=== PATIENT | male | born 1985 | race Caucasian/White ===

== ENCOUNTER 2018-03-10 08:38 | Outpatient (REF) | payer MEDICAID, SELFPAY ==
[2018-03-10 21:47] LABS: Cholesterol 137 mg/dL (50-200); HDL Cholesterol 47 mg/dL (40-60); LDL CHOLESTEROL 87 mg/dL (<100); Triglyceride 59 mg/dL (30-150)
== END 2018-03-10 08:58 ==
LOC: NCHCN 08:38
PROVIDERS: Visit Provider Family Medicine
DX: Z13.220 Encounter for screening for lipoid disorders (principal)
CPT/HCPCS: 80061; 83721